=== PATIENT | male | born 1965 | race African-American/Black ===

== ENCOUNTER 2017-08-14 16:49 | Emergency (ER) | payer OTHER, BC ==
[2017-08-14 17:00] VITALS: BP 141/94
[2017-08-14] MEDS ORDERED: KETOROLAC TROMETHAMINE 60 MG/2 ML SDV IM ONE (18:39)
[2017-08-14] MEDS ORDERED: DEXAMETHASONE SOD PHOS INJ 10 MG/1 ML VIAL IM ONE (18:39)
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
== END 2017-08-14 18:55 | disposition home or self-care (01) ==
LOC: ER 16:49
DX: M54.5 Low back pain (principal); V49.50XA Passenger injured in collision with unspecified motor vehicles in traffic accident, initial encounter
CPT/HCPCS: 99283; 96372; J1885; J1100